=== PATIENT | female | born 1955 | race Caucasian/White ===

== ENCOUNTER 2017-02-24 18:13 | Emergency (ER) | payer SELFPAY ==
[2017-02-24 18:28] VITALS: BP 147/98
[2017-02-24] MEDS ORDERED: Sodium Chloride 0.9% 10 ML Syringe FLUSH PRN (18:53)
[2017-02-24] MEDS ORDERED: HYDROmorphone 0.5 MG/0.5 ML Syringe IVPUSH ONE (18:53)
[2017-02-24] MEDS ORDERED: Sodium Chloride 0.9% 500 ML IV ONE (18:53)
[2017-02-24] MEDS ORDERED: Famotidine 20 MG/2 ML SDV IVPUSH ONE (18:53)
[2017-02-24] MEDS ORDERED: Ondansetron 4 MG/2 ML SDV IVPUSH ONE (18:53)
--- NOTE | 2017-02-24 21:03 | EDM.PDOC ---
ED HPI GI/ABDOMINAL - General Chief Complaint: Abdominal Pain Stated Complaint: CHEST PAIN Time Seen by Provider: 02/24/17 18:40 Source of Information: Reports: Patient, RN notes reviewed - History of Present Illness INITIAL COMMENTS - FREE TEXT/NARRATIVE: 62-year-old female comes in with severe right upper quadrant abdominal pain that began about one hour ago. This began shortly after eating supper this evening. The pain has been right upper abdomen with some radiation to her back. She's had some mild nausea but no vomiting. There is a severe sharp achy discomfort with occasional superimposed cramping. She's not aware of prior gallbladder problems. Is not having pain to the left or lower abdomen. No diarrhea. No fever or chills. No chest pain or difficulty breathing. - Related Data Allergies/ADRs: Allergies Allergy/AdvReac Type Severity Reaction Status Date / Time No Known Allergies Allergy Verified 02/24/17 18:28 Home Meds: Home Meds Calcium Carbonate [Calcium] 1,000 mg PO DAILY 05/01/15 [History] Cyanocobalamin (Vitamin B12) [Vitamin B12] 1 tab PO DAILY 02/24/17 [History] Past Medical History Respiratory History: Reports: Asthma Gastrointestinal History: Reports: Other (see below) Other Gastrointestinal History: diverticulitis Endocrine/Metabolic History: Reports: Diabetes, gestational, Other (see below) Other Endocrine/Metabolic History: borderline diabetic - Past Surgical History GI Surgical History: Reports: Hernia repair/other Female Surgical History: Reports: Hysterectomy, Other (see below) Other Female Surgeries/Procedures: partial hysterectomy Social & Family History - Tobacco Use Smoking Status *Q: Never Smoker Second Hand Smoke Exposure: No - Caffeine Use Caffeine Use: Reports: Coffee - Recreational Drug Use Recreational Drug Use: No ED ROS GENERAL - Review of Systems Review Of Systems: See Below Constitutional: Denies: fever, chills, diaphoresis HEENT: Reports: No symptoms Respiratory: Denies: Shortness of Breath, Pleuritic Chest Pain, Cough Cardiovascular: Denies: Chest pain GI/Abdominal: Reports: Abdominal pain (Severe right upper quad with some radiation to her back), Nausea. Denies: Diarrhea, Vomiting : Reports: no symptoms Musculoskeletal: Denies: leg pain Skin: Reports: no symptoms Neurological: Reports: No Symptoms ED EXAM, GI/ABD - Physical Exam Exam: See Below General Appearance: alert, moderate distress, severe distress Throat/Mouth: Normal inspection Neck: supple, full range of motion Respiratory/Chest: no respiratory distress, lungs clear, normal breath sounds Cardiovascular: regular rate, rhythm GI/Abdominal: tenderness (Very tender right upper quadrant and upper midabdomen , remainder of abdomen is soft and nontender). No: guarding, rigidity ( Remainder) Extremities: normal inspection. No: pedal edema, leg pain Neurological: alert, oriented, no motor/sensory deficits Skin Exam: Warm, Dry, Normal color Course - Vital Signs Last Recorded V/S: Last Vital Signs Temp 97 F 02/24/17 18:27 Pulse 84 02/24/17 18:27 Resp 16 02/24/17 18:27 BP 147/98 H 02/24/17 18:27 Pulse Ox 98 02/24/17 18:27 - Orders/Labs/Meds Orders: Active Orders 24 hr Category Date Time Status EKG 12 Lead [EKG Documentation Completion] [RC] STAT Care 02/24/17 18:52 Active Peripheral IV Care [RC] . DIRECTED Care 02/24/17 18:53 Active Peripheral IV Insertion Adult [OM.PC] Stat Oth 02/24/17 18:52 Ordered Labs: Laboratory Tests 02/24/17 02/24/17 02/24/17 Range/Units 19:15 19:15 19:15 WBC 6.52 (3.98-10.04) K/mm3 RBC 4.19 (3.98-5.22) M/mm3 Hgb 12.6 (11.2-15.7) gm/L Hct 37.8 (34.1-44.9) % MCV 90.2 (79.4-94.8) fl MCH 30.1 (25.6-32.2) pg MCHC 33.3 (32.2-35.5) g/dl RDW Std Deviation 39.3 (36.4-46.3) fL Plt Count 363 (182-369) K/mm3 MPV 9.2 L (9.4-12.3) fl Neut % (Auto) 52.0 (34.0-71.1) % Lymph % (Auto) 37.7 (19.3-51.7) % Jasper % (Auto) 8.4 (4.7-12.5) % Eos % (Auto) 1.4 (0.7-5.8) Baso % (Auto) 0.5 (0.1-1.2) % Neut # (Auto) 3.39 (1.56-6.13) K/mm3 Lymph # (Auto) 2.46 (1.18-3.74) K/mm3 Jasper # (Auto) 0.55 H (0.24-0.36) K/mm3 Eos # (Auto) 0.09 (0.04-0.36) K/mm3 Baso # (Auto) 0.03 (0.01-0.08) K/mm3 Sodium 140 (136-145) mEq/L Potassium 3.5 (3.5-5.1) mEq/L Chloride 106 (98-107) mEq/L Carbon Dioxide 27 (21-32) mEq/L Anion Gap 10.5 (5-15) BUN 18 (7-18) mg/dL Creatinine 1.2 H (0.55-1.02) mg/dL Est Cr Clr Drug Dosing 35.36 mL/min Estimated GFR (MDRD) 46 (>60) mL/min BUN/Creatinine Ratio 15.0 (14-18) Glucose 116 H (80-115) mg/dL Calcium 8.6 (8.5-10.1) mg/dL Total Bilirubin 0.3 (0.2-1.0) mg/dL GGT 40 (5-55) U/L AST 18 (15-37) U/L ALT 27 (14-59) U/L Alkaline Phosphatase 86 (46-116) U/L C-Reactive Protein 0.2 (<1.0) mg/dL Total Protein 6.6 (6.4-8.2) g/dl Albumin 3.8 (3.4-5.0) g/dl Globulin 2.8 gm/dL Albumin/Globulin Ratio 1.4 (1-2) Lipase 178 (73-393) U/L Meds: Medications Discontinued Medications Generic Name Dose Route Start Last Admin Trade Name Freq PRN Reason Stop Dose Admin Famotidine 20 mg 02/24/17 18:53 02/24/17 19:10 Pepcid IVPUSH 02/24/17 18:54 20 mg ONETIME ONE Administration Hydromorphone HCl 0.5 mg 02/24/17 18:53 02/24/17 19:12 Dilaudid IVPUSH 02/24/17 18:54 0.5 mg ONETIME ONE Administration Hyoscyamine 0.125 mg 02/24/17 21:04 02/24/17 21:07 Hyomax-Sl SL 02/24/17 21:05 0.125 mg ONETIME ONE Administration Sodium Chloride 500 mls @ 999 mls/hr 02/24/17 18:53 02/24/17 19:12 Normal Saline IV 02/24/17 19:23 999 mls/hr .BOLUS ONE Administration Ondansetron HCl 4 mg 02/24/17 18:53 02/24/17 19:21 Zofran IVPUSH 02/24/17 18:54 4 mg ONETIME ONE Administration Sodium Chloride 10 ml 02/24/17 18:53 02/24/17 19:12 Saline Flush FLUSH 10 ml ASDIRECTED PRN Administration Keep Vein Open - Re-Assessments/Exams Free Text/Narrative Re-Assessment/Exam: 02/25/17 00:31. Please note the patient was discharged 2 or 3 hours ago. Completing the note at this time. She was given Dilaudid 1 mg IV, Zofran 4 mg IV and some IV fluid. With that her pain is almost completely gone her labs all came back quite normal. Because she did eat just a couple of hours prior to her presenting to the ED she is not a candidate for ultrasound this evening. We have checked and there is a slot available 7:30 in the morning and therefore she will return at that time for ultrasound of abdomen with high suspicion for gallbladder disease. Discharge instructions as documented Departure - Departure Time of Disposition: 21:02 Disposition: Home, Self-Care 01 Condition: fair Clinical Impression: Cholecystitis Abdominal pain Qualifiers: Abdominal location: upper abdomen, unspecified Qualified Code(s): R10.10 - Upper abdominal pain, unspecified Instructions: Cholecystitis, [id number] Referrals: PCP,Not In Area [Primary Care Provider] - Forms: ED Department Discharge Additional Instructions: You are on the schedule for ultrasound of your gallbladder 7:30 tomorrow morning. Clear liquids only until midnight, nothing to eat after midnight. I then recommend that you followup with Dr. Laureano Hood, [facility] for results of your ultrasound study, call tomorrow morning for appointment, [phone]. and for further treatment as needed. I highly suspect that this is the gallbladder causing your abdominal pain this evening but we will not know for sure until you have had the ultrasound tomorrow morning. Clear liquids and bland diet after the ultrasound as tolerated. Avoid all fatty food for now. Fatty food will likely trigger further gallbladder attacks. Return to ED as needed if symptoms worsening in any way. - My Orders Last 24 Hours: My Active Orders 02/24/17 18:52 EKG 12 Lead [EKG Documentation Completion] [RC] STAT Peripheral IV Insertion Adult [OM.PC] Stat 02/24/17 18:53 Peripheral IV Care [RC] . DIRECTED - Assessment/Plan Last 24 Hours: My Active Orders 02/24/17 18:52 EKG 12 Lead [EKG Documentation Completion] [RC] STAT Peripheral IV Insertion Adult [OM.PC] Stat 02/24/17 18:53 Peripheral IV Care [RC] . DIRECTED
[2017-02-24] MEDS ORDERED: Hyoscyamine 0.125 MG Tab.SL SL ONE (21:04)
== END 2017-02-24 21:22 | disposition home or self-care (01) ==
LOC: JD.ED 18:13
DX: K81.9 Cholecystitis, unspecified (principal); Z90.711 Acquired absence of uterus with remaining cervical stump; Z98.890 Other specified postprocedural states
CPT/HCPCS: 36415; 80053; 82977; 83690; 85025; 86140; 93005; 96361; 96374; 96375; 99285; A9270; J1170; J2405; J7040; J7050; 99284

== ENCOUNTER 2017-03-17 17:18 | Emergency (ER) | payer SELFPAY ==
[2017-03-17 17:30] VITALS: BP 174/90
[2017-03-17] MEDS ORDERED: Ondansetron 4 MG/2 ML SDV IVPUSH ONE (17:52)
[2017-03-17] MEDS ORDERED: HYDROmorphone 0.5 MG/0.5 ML Syringe IVPUSH ONE (17:52)
[2017-03-17] MEDS ORDERED: Sodium Chloride 0.9% 10 ML Syringe FLUSH PRN ×2 (17:52→19:21)
--- NOTE | 2017-03-17 17:53 | EDM.PDOC ---
ED HPI GENERAL MEDICAL PROBLEM - General Chief Complaint: Abdominal Pain Stated Complaint: Abdominal pain Time Seen by Provider: 03/17/17 17:40 Source of Information: Reports: Patient, RN Notes Reviewed History Limitations: Reports: No Limitations - History of Present Illness INITIAL COMMENTS - FREE TEXT/NARRATIVE: 62 year old female presents to the ED today for complaints of sudden onset of periumbilical and epigastric abdominal pain. The pain is described as sharp, stabbing, and colicky. She says the symptoms are similar to what she experienced with gallbladder attacks. The pain came on suddenly about 45 minutes prior to arrival. She denies fever but has noticed chills since the pain has started. No nausea or vomiting. Bowel movements have been regular. No diarrhea. She had a lap cholecystectomy 1 week ago and was doing well until now. She reports that she did not have stones but had sludge. She worked today for the first time since surgery. 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 She called her surgeon at [facility] who instructed her to come to the ED if pain becomes severe. Right Upper Abdominal Pain Score (Numeric/FACES): 10 - Related Data Allergies Allergy/AdvReac Type Severity Reaction Status Date / Time No Known Allergies Allergy Verified 03/17/17 17:30 Home Meds: Home Meds Calcium Carbonate [Calcium] 1,000 mg PO DAILY 05/01/15 [History] Cyanocobalamin (Vitamin B12) [Vitamin B12] 1 tab PO DAILY 02/24/17 [History] Past Medical History Respiratory History: Reports: Asthma Gastrointestinal History: Reports: Other (See Below) Other Gastrointestinal History: diverticulitis [employer] History: Reports: , Other (See Below) Endocrine/Metabolic History: Reports: Diabetes, Gestational, Other (See Below) Other Endocrine/Metabolic History: borderline diabetic - Past Surgical History GI Surgical History: Reports: Cholecystectomy, Hernia Repair/Other Female Surgical History: Reports: Hysterectomy, Other (See Below) Musculoskeletal Surgical History: Reports: Arthroscopic Knee Social & Family History - Tobacco Use Smoking Status *Q: Never Smoker Second Hand Smoke Exposure: No - Caffeine Use Caffeine Use: Reports: Coffee - Recreational Drug Use Recreational Drug Use: No ED ROS GENERAL - Review of Systems Review Of Systems: See Below Constitutional: Reports: Chills. Denies: Fever Respiratory: Reports: No Symptoms. Denies: Shortness of Breath Cardiovascular: Reports: No Symptoms. Denies: Chest Pain GI/Abdominal: Reports: Abdominal Pain. Denies: Constipation, Diarrhea, Nausea, Vomiting ED EXAM, GI/ABD - Physical Exam Exam: See Below Exam Limited By: No Limitations General Appearance: Alert, WD/WN, Anxious, Moderate Distress Respiratory/Chest: No Respiratory Distress, Lungs Clear, Normal Breath Sounds Cardiovascular: Regular Rate, Rhythm GI/Abdominal: Soft, No Distention, No Mass, Hyperactive Bowel Sounds, Tenderness (over incision sites, does not tolerate light palpation of epigastrium and epigastric regions), Guarding Neurological: Alert, Oriented, Normal Cognition Course - Vital Signs Last Recorded V/S: Last Vital Signs Temp 97.5 F 03/17/17 17:27 Pulse 89 03/17/17 17:27 Resp 20 03/17/17 20:42 BP 174/90 H 03/17/17 17:27 Pulse Ox 95 03/17/17 20:42 - Orders/Labs/Meds Orders: Active Orders 24 hr Category Date Time Status Peripheral IV Care [RC] . DIRECTED Care 03/17/17 17:52 Active Peripheral IV Insertion Adult [OM.PC] Stat Oth 03/17/17 17:51 Ordered Labs: Laboratory Tests 03/17/17 03/17/17 Range/Units 18:04 18:04 WBC 8.74 (3.98-10.04) K/mm3 RBC 4.40 (3.98-5.22) M/mm3 Hgb 13.4 (11.2-15.7) gm/L Hct 40.4 (34.1-44.9) % MCV 91.8 (79.4-94.8) fl MCH 30.5 (25.6-32.2) pg MCHC 33.2 (32.2-35.5) g/dl RDW Std Deviation 40.5 (36.4-46.3) fL Plt Count 420 H (182-369) K/mm3 MPV 8.9 L (9.4-12.3) fl Neutrophils % (Manual) 50 (40-60) % Band Neutrophils % 1 (0-10) % Lymphocytes % (Manual) 40 (20-40) % Atypical Lymphs % 0 % Monocytes % (Manual) 4 (2-10) % Eosinophils % (Manual) 5 (0.7-5.8) % Basophils % (Manual) 0 L (0.1-1.2) Platelet Estimate Adequate Plt Morphology Comment Normal RBC Morph Comment Normal Sodium 140 (136-145) mEq/L Potassium 3.4 L (3.5-5.1) mEq/L Chloride 103 (98-107) mEq/L Carbon Dioxide 27 (21-32) mEq/L Anion Gap 13.4 (5-15) BUN 11 (7-18) mg/dL Creatinine 1.0 (0.55-1.02) mg/dL Est Cr Clr Drug Dosing 42.43 mL/min Estimated GFR (MDRD) 56 (>60) mL/min BUN/Creatinine Ratio 11.0 L (14-18) Glucose 97 (80-115) mg/dL Calcium 8.8 (8.5-10.1) mg/dL Total Bilirubin 0.4 (0.2-1.0) mg/dL GGT 229 H (5-55) U/L AST 29 (15-37) U/L ALT 109 H (14-59) U/L Alkaline Phosphatase 163 H (46-116) U/L Total Protein 7.3 (6.4-8.2) g/dl Albumin 3.8 (3.4-5.0) g/dl Globulin 3.5 gm/dL Albumin/Globulin Ratio 1.1 (1-2) Amylase 73 (25-115) U/L Lipase 121 (73-393) U/L Meds: Medications Discontinued Medications Generic Name Dose Route Start Last Admin Trade Name Freq PRN Reason Stop Dose Admin Diatrizoate Meglum/Diatrizoate Sod 120 ml 03/17/17 19:21 03/17/17 19:56 Gastrografin 37% PO 03/17/17 19:22 90 ml ONETIME ONE Administration Hydromorphone HCl 0.5 mg 03/17/17 17:52 03/17/17 18:12 Dilaudid IVPUSH 03/17/17 17:53 0.5 mg ONETIME ONE Administration Iopamidol 150 ml 03/17/17 19:21 03/17/17 19:57 Isovue-300 (61%) IVPUSH 03/17/17 19:22 100 ml ONETIME ONE Administration Ondansetron HCl 4 mg 03/17/17 17:52 03/17/17 18:18 Zofran IVPUSH 03/17/17 17:53 4 mg ONETIME ONE Administration Sodium Chloride 10 ml 03/17/17 17:52 03/17/17 18:16 Saline Flush FLUSH 10 ml ASDIRECTED PRN Administration Keep Vein Open Sodium Chloride 10 ml 03/17/17 19:21 03/17/17 19:56 Saline Flush FLUSH 10 ml ONETIME PRN Administration IV FLUSH - Re-Assessments/Exams Free Text/Narrative Re-Assessment/Exam: CBC, CMP, amylase, and lipase are normal. Her GGT is elevated but I suspect this elevation is related to her recent surgery. CT of abdomen/pelvis read by Dr. Baltazar, impression: 1. Slight increased stool within the colon 2. Other incidental findings. Nothing acute is appreciated The patient's symptoms are consistent with constipation. Will treat for constipation. Educated on dietary modifications and OTC medications. Instructed to f/u with her surgeon as instructed. Departure - Departure Time of Disposition: 20:33 Disposition: Home, Self-Care 01 Condition: good Clinical Impression: Constipation Qualifiers: Constipation type: unspecified constipation type Qualified Code(s): K59.00 - Constipation, unspecified - Discharge Information Instructions: Constipation, Adult, [id number] Referrals: PCP,Not In Area [Primary Care Provider] - Forms: ED Department Discharge Additional Instructions: Drink at least 80 oz of water per day Tylenol as needed for pain Docusate stool softener twice a day until regular then once a day You may also drink prune juice to help with bowels Continue with high fiber foods - fruits vegetables and whole grains Continue to follow your post-op instructions from your surgeon Return to ER if your symptoms worsen - My Orders Last 24 Hours: My Active Orders 03/17/17 17:51 Peripheral IV Insertion Adult [OM.PC] Stat 03/17/17 17:52 Peripheral IV Care [RC] . DIRECTED - Assessment/Plan Last 24 Hours: My Active Orders 03/17/17 17:51 Peripheral IV Insertion Adult [OM.PC] Stat 03/17/17 17:52 Peripheral IV Care [RC] . DIRECTED
[2017-03-17] MEDS ORDERED: Iopamidol 612 MG/ML 150 ML Bottle IVPUSH ONE (19:21)
[2017-03-17] MEDS ORDERED: Diatrizoate Meglumine/Diatrizoate Sodium 37% 120 ML Bottle PO ONE (19:21)
--- NOTE | 2017-03-17 20:21 | CT ---
CT abdomen and pelvis Technique: Multiple axial sections were obtained from above the dome of the diaphragm inferiorly through the pubic symphysis. Intravenous and oral contrast was utilized. Delayed images were also obtained through the bladder. Comparison: Previous CT abdomen and pelvis exam of 05/01/15. Findings: Visualized lung bases are clear. Liver shows no focal abnormality. Previous cholecystectomy is noted. Spleen appears within normal limits in size. Adrenal glands show no nodule. Pancreas is within normal limits. Kidneys show symmetric contrast enhancement without hydronephrosis or mass. Incidental duodenal diverticulum seen off the fourth portion of the duodenum measuring 3.4 cm. This appears as a stable finding. Aorta shows no aneurysmal dilatation. No retroperitoneal adenopathy or mesenteric abnormalities are seen. Appendix is seen which is normal. No pelvic mass or adenopathy is seen. Anastomotic sutures are seen within the sigmoid colon. Slight diverticulosis is noted within the sigmoid and descending colon without inflammatory change. No findings of acute diverticulitis are seen. Slight increased stool is noted within the colon. Delayed images shows contrast within the distal ureters and within the bladder. Bone window settings were reviewed which appear within normal limits for the patient's age. Impression: 1. Slight increased stool within the colon. 2. Other incidental findings. Nothing acute is appreciated on CT study of the abdomen and pelvis. Diagnostic code #2
== END 2017-03-17 20:45 | disposition home or self-care (01) ==
LOC: JD.ED 17:18
DX: K59.00 Constipation, unspecified (principal); J45.909 Unspecified asthma, uncomplicated; E11.9 Type 2 diabetes mellitus without complications; Z90.710 Acquired absence of both cervix and uterus; Z90.49 Acquired absence of other specified parts of digestive tract; Z79.899 Other long term (current) drug therapy
CPT/HCPCS: 36415; 74177; 80053; 82150; 82977; 83690; 85025; 96374; 96375; 99284; J1170; J2405; J7050; Q9963; Q9967

== ENCOUNTER 2017-07-14 13:59 | Emergency (ER) | payer SELFPAY ==
[2017-07-14 14:10] VITALS: BP 125/72
[2017-07-14] MEDS ORDERED: Sodium Chloride 0.9% 10 ML Syringe FLUSH PRN (14:30)
--- NOTE | 2017-07-14 14:45 | EDM.PDOC ---
ED HPI GENERAL MEDICAL PROBLEM - General Chief Complaint: Cardiovascular Problem Stated Complaint: Chest pain Time Seen by Provider: 07/14/17 14:15 Source of Information: Reports: Patient, RN Notes Reviewed History Limitations: Reports: No Limitations - History of Present Illness INITIAL COMMENTS - FREE TEXT/NARRATIVE: 62 year old female presents to the ED with complaints of epigastric pain, diaphoresis, and near syncope. She said symptoms started suddenly. She initially felt lightheaded and like she may pass out. She then developed sharp, epigastric pain. She had no loss of consciousness. She felt short of breath at the time of symptoms. Symptoms have resolved prior to arrival. She denies radiation of the pain. She reports drinking coffee this morning. She has not eaten today. She denies pleuritic chest pain, lower extremity edema, unilateral calf pain or erythema. She is not on any blood thinners or hormone replacements. She has no history of clotting disorder. No recent travel. She is not a smoker and denies frequent alcohol use. She denies history of heart disease or high cholesterol. She has a history of asthma but no other long problems. She denies taking any medications currently and denies any asthma symptoms. PMH: asthma, GERD, and gallstones. Surgical history: cholecystectomy, hystorectomy, bowel resection due to diverticulitis. 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: , Other (See Below) Endocrine/Metabolic History: Reports: Diabetes, Gestational, Other (See Below) Other Endocrine/Metabolic History: borderline diabetic - Past Surgical History GI Surgical History: Reports: Cholecystectomy, Hernia Repair/Other Female Surgical History: Reports: Hysterectomy, Other (See Below) Musculoskeletal Surgical History: Reports: Arthroscopic Knee Social & Family History - Tobacco Use Smoking Status *Q: Never Smoker Second Hand Smoke Exposure: No - Caffeine Use Caffeine Use: Reports: Coffee - Recreational Drug Use Recreational Drug Use: No ED ROS GENERAL - Review of Systems Review Of Systems: See Below Constitutional: Reports: Diaphoresis. Denies: Fever, Chills Respiratory: Denies: Shortness of Breath, Wheezing, Pleuritic Chest Pain, Cough Cardiovascular: Reports: Chest Pain, Lightheadedness. Denies: Dyspnea on Exertion, Palpitations, Syncope GI/Abdominal: Reports: Abdominal Pain (epigastric pain). Denies: Constipation, Diarrhea, Nausea, Vomiting Neurological: Reports: No Symptoms. Denies: Headache, Numbness, Tingling ED EXAM, GENERAL - Physical Exam Exam: See Below Exam Limited By: No Limitations General Appearance: Alert, WD/WN, No Apparent Distress, Anxious Neck: Normal Inspection, Supple, Non-Tender Respiratory/Chest: No Respiratory Distress, Lungs Clear, Normal Breath Sounds, No Accessory Muscle Use, Chest Non-Tender, Other (tachypnic ) Cardiovascular: Normal Peripheral Pulses, Regular Rate, Rhythm, No Edema, No Murmur GI/Abdominal: Normal Bowel Sounds, Soft, No Organomegaly, No Distention, Tender (epigastric ) Neurological: Alert, Oriented, Normal Cognition, No Motor/Sensory Deficits Psychiatric: Anxious Skin Exam: Warm, Dry, Intact EKG INTERPRETATION EKG Date: 07/14/17 Time: 14:19 Rhythm: NSR Rate (Beats/Min): 96 [place]: Normal P-Wave: Present QRS: Normal QT: Normal EKG Interpretation Comments: Non-specific ST depression in II, AVL, V3-V6 and elevation in AVR. All ST changes are less than 1mm, therefore no STEMI. EKG read by Dr. Ender Cui. Course - Vital Signs Last Recorded V/S: Last Vital Signs Temp 96.7 F 07/14/17 14:06 Pulse 72 07/14/17 14:06 Resp 22 H 07/14/17 14:06 BP 125/72 07/14/17 14:06 Pulse Ox 100 07/14/17 14:06 - Orders/Labs/Meds Orders: Active Orders 24 hr Category Date Time Status Blood Glucose Check, Bedside [RC] ONETIME Care 07/14/17 14:30 Active Peripheral IV Care [RC] . DIRECTED Care 07/14/17 14:31 Active Sodium Chloride 0.9% [Saline Flush] Med 07/14/17 14:30 Active 10 ml FLUSH ASDIRECTED PRN Peripheral IV Insertion Adult [OM.PC] Stat Oth 07/14/17 14:30 Ordered EKG 12 Lead [EK] Stat Ther 07/14/17 14:11 Ordered Medication Orders Sodium Chloride (Saline Flush) 10 ml FLUSH ASDIRECTED PRN PRN Reason: Keep Vein Open Last Admin: 07/14/17 14:53 Dose: 10 ml Labs: Laboratory Tests 07/14/17 07/14/17 07/14/17 Range/Units 14:40 14:40 15:03 WBC 5.82 (3.98-10.04) K/mm3 RBC 4.77 (3.98-5.22) M/mm3 Hgb 14.5 (11.2-15.7) gm/L Hct 43.6 (34.1-44.9) % MCV 91.4 (79.4-94.8) fl MCH 30.4 (25.6-32.2) pg MCHC 33.3 (32.2-35.5) g/dl RDW Std Deviation 40.3 (36.4-46.3) fL Plt Count 402 H (182-369) K/mm3 MPV 9.0 L (9.4-12.3) fl Neut % (Auto) 48.0 (34.0-71.1) % Lymph % (Auto) 42.8 (19.3-51.7) % [place] % (Auto) 5.8 (4.7-12.5) % Eos % (Auto) 2.7 (0.7-5.8) Baso % (Auto) 0.5 (0.1-1.2) % Neut # (Auto) 2.79 (1.56-6.13) K/mm3 Lymph # (Auto) 2.49 (1.18-3.74) K/mm3 [place] # (Auto) 0.34 (0.24-0.36) K/mm3 Eos # (Auto) 0.16 (0.04-0.36) K/mm3 Baso # (Auto) 0.03 (0.01-0.08) K/mm3 Sodium 143 (136-145) mEq/L Potassium 3.8 (3.5-5.1) mEq/L Chloride 106 (98-107) mEq/L Carbon Dioxide 28 (21-32) mEq/L Anion Gap 12.8 (5-15) BUN 12 (7-18) mg/dL Creatinine 1.1 H (0.55-1.02) mg/dL Est Cr Clr Drug Dosing TNP Estimated GFR (MDRD) 50 (>60) mL/min BUN/Creatinine Ratio 10.9 L (14-18) Glucose 112 (80-115) mg/dL POC Glucose 102 (80-115) mg/dL Calcium 9.0 (8.5-10.1) mg/dL Total Bilirubin 0.4 (0.2-1.0) mg/dL AST 46 H (15-37) U/L ALT 56 (14-59) U/L Alkaline Phosphatase 111 (46-116) U/L Troponin I < 0.017 (0.00-0.056) ng/mL Total Protein 7.4 (6.4-8.2) g/dl Albumin 3.9 (3.4-5.0) g/dl Globulin 3.5 gm/dL Albumin/Globulin Ratio 1.1 (1-2) Lipase 232 (73-393) U/L Meds: Medications Generic Name Dose Route Start Last Admin Trade Name Freq PRN Reason Stop Dose Admin Sodium Chloride 10 ml 07/14/17 14:30 07/14/17 14:53 Saline Flush FLUSH 10 ml ASDIRECTED PRN Administration Keep Vein Open - Re-Assessments/Exams Free Text/Narrative Re-Assessment/Exam: CBC and CMP are unremarkable. Troponin and Lipase are WNL. Chest x-ray is normal. There is no pulmonary infiltrates or effusions. No bony abnormality. Heart size is normal. There is no free air under the diaphragm to indicate perforated ulcer. EKG has no acute ischemic changes. By history, the patient drank coffee today with sugar this morning and has not eaten today. She describes symptoms (diaphoresis and lightheadedness) consistent with transient hypoglycemia. On exam, she has epigatric tenderness. She also has a history of GERD. Cardiac etiology has been ruled out. Symptoms are consistent with diagnosis of gastritis. Will start her on omeprazole and carafate. She was educated on dietary modifications and return precautions. She was instructed to f/u with her PCP next week. Departure - Departure Time of Disposition: 16:08 Disposition: Home, Self-Care 01 Condition: Good Clinical Impression: Gastritis Qualifiers: Gastritis type: unspecified gastritis Chronicity: acute Gastritis bleeding: without bleeding Qualified Code(s): K29.00 - Acute gastritis without bleeding Prescriptions: Omeprazole 20 mg PO BID #28 cap.cr Sucralfate [Carafate] 1 gm PO QID #56 tablet Instructions: Gastritis, Adult, [id number] Referrals: Randolph Mills [Primary Care Provider] - Forms: ED Department Discharge Additional Instructions: Omeprazole (Prilosec) 20mg twice a day for two weeks Carafate 1 gram 1 hour before each meal and at bedtime Avoid coffee, caffeine, alcohol, spicy foods, acidic foods (tomatoes, citrus fruits) Avoid Non-steroidal anti-inflammatory (NSAID) medications including Ibuprofen, Motrin, Aleve, Naproxyn You can also take Zantac 150mg 1-2 times daily as needed for epigastric pain not relieved by the above medications Follow-up with your primary care provider next week for recheck Return to ER with any new or worsening symptoms - My Orders Last 24 Hours: My Active Orders 07/14/17 14:11 EKG 12 Lead [EK] Stat 07/14/17 14:30 Blood Glucose Check, Bedside [RC] ONETIME Sodium Chloride 0.9% [Saline Flush] 10 ml FLUSH ASDIRECTED PRN Peripheral IV Insertion Adult [OM.PC] Stat 07/14/17 14:31 Peripheral IV Care [RC] . DIRECTED - Assessment/Plan Last 24 Hours: My Active Orders 07/14/17 14:11 EKG 12 Lead [EK] Stat 07/14/17 14:30 Blood Glucose Check, Bedside [RC] ONETIME Sodium Chloride 0.9% [Saline Flush] 10 ml FLUSH ASDIRECTED PRN Peripheral IV Insertion Adult [OM.PC] Stat 07/14/17 14:31 Peripheral IV Care [RC] . DIRECTED
--- NOTE | 2017-07-14 15:29 | CR ---
Chest: Portable view of the chest was obtained. Comparison: No prior chest x-ray. Heart size and mediastinum are within normal limits. Lungs are clear. Bony structures are grossly intact. Surgical clips are noted from prior cholecystectomy. Impression: 1. Nothing acute is seen on portable chest x-ray. Diagnostic code #2
== END 2017-07-14 16:11 | disposition home or self-care (01) ==
LOC: JD.ED 13:59
DX: K29.00 Acute gastritis without bleeding (principal); K21.9 Gastro-esophageal reflux disease without esophagitis; J45.909 Unspecified asthma, uncomplicated
CPT/HCPCS: 36415; 71010; 80053; 82962; 83690; 84484; 85025; 93005; 99285; J7050; 99284

== ENCOUNTER 2019-11-26 16:08 | Emergency (ER) | payer SELFPAY ==
[2019-11-26 16:26] VITALS: BP 162/106; PULSE 77
--- NOTE | 2019-11-26 19:23 | EDM.PDOC ---
ED HPI GENERAL MEDICAL PROBLEM - General Chief Complaint: Back Pain or Injury Stated Complaint: L SIDE BACK PAIN Time Seen by Provider: 11/26/19 18:52 Source of Information: Reports: Patient, Family () History Limitations: Reports: No Limitations - History of Present Illness INITIAL COMMENTS - FREE TEXT/NARRATIVE: Mrs. Conway is a pleasant 64-year-old woman with a past medical history significant for suspected and untreated asthma, untreated GERD, diverticulitis, peptic ulcer disease, and arthritis, who states that she developed upper left back pain that radiates to her far-left chest around 16:00 this afternoon. She describes the pain as sharp, when present, to the point that it makes her feel like she might pass out, however, the pain is intermittent, lasting only a few seconds, recurring every 15-20 minutes. She has not identified any modifiers. No associated dyspnea or lightheadedness. She has had nausea, but states that it is unrelated to her pain. No palpitations, diaphoresis, or sense of impending doom. No prior similar symptoms. The patient denies incurring any recent injury or strain to the area. The patient reports having a sore throat and cough for the past 2 weeks, otherwise, she denies any recent fever, chills, vomiting, constipation, diarrhea , abdominal pain, urinary symptoms, recent weight gain or weight loss, recent bloody bowel movements or black bowel movements, recent joint aches, headaches, or rashes. The patient's PCP is Dr. Adrien Mills, in [place]. She did not receive an influenza vaccine this season, but declined an offer to receive one here [facility]. Left Back Pain Score (Numeric/FACES): 10 - Related Data Allergies Allergy/AdvReac Type Severity Reaction Status Date / Time No Known Allergies Allergy Verified 11/26/19 16:26 Home Meds: Home Meds Calcium Carbonate [Calcium] 1,000 mg PO DAILY 05/01/15 [History] Cyanocobalamin (Vitamin B12) [Vitamin B12] 1 tab PO DAILY 02/24/17 [History] Aspirin 81 mg PO DAILY 11/26/19 [History] Orphenadrine [Norflex] 1 tab PO Q12H PRN #14 tab.er 11/26/19 [Rx] Past Medical History HEENT History: Reports: Hard of Hearing (wears hearing aids) Respiratory History: Reports: Asthma (Suspected, not tested. Untreated.) Gastrointestinal History: Reports: Diverticulosis (diverticulitis), GERD ( untreated), PUD Musculoskeletal History: Reports: Arthritis Endocrine/Metabolic History: Reports: Diabetes, Gestational - Past Surgical History GI Surgical History: Reports: Cholecystectomy (2017), Colon (hemicolectomy 2 diverticulitis), Colonoscopy (x 2 or 3), EGD (x 1), Hernia, Abdominal ( periumbilical) Female Surgical History: Reports: Section (x 1), Hysterectomy ( partial) Musculoskeletal Surgical History: Reports: Arthroscopic Knee (left) Social & Family History - Tobacco Use Smoking Status *Q: Former Smoker Years of Tobacco use: 30 Packs/Tins Daily: 1 Month/Year Tobacco Last Used: Quit 2009 - Caffeine Use Caffeine Use: Reports: Coffee - Alcohol Use Alcohol Use History: Yes Alcohol Use Frequency: Socially - Recreational Drug Use Recreational Drug Use: No - Living Situation & Occupation Living situation: Reports: , with Spouse 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 ED EXAM, GENERAL - Physical Exam Exam: See Below Exam Limited By: No Limitations General Appearance: Alert, WD/WN, No Apparent Distress Eye Exam: Bilateral Eye: EOMI, Normal Inspection Ears: Normal External Exam, Other (wears hearing aids) Nose: Normal Inspection Throat/Mouth: Normal Inspection, Normal Lips, Normal Voice, No Airway Compromise Head: Atraumatic, Normocephalic Neck: Normal Inspection, Full Range of Motion Respiratory/Chest: No Respiratory Distress, Lungs Clear, Normal Breath Sounds, No Accessory Muscle Use, Other (Producible tenderness to palpation of the left chest, midaxillary line). No: Decreased Breath Sounds, Crackles, Rhonchi, Wheezing, Stridor, Pleural Rub, Prolonged Expiration Cardiovascular: Normal Peripheral Pulses, Regular Rate, Rhythm, No Edema, No Gallop, No JVD, No Murmur, No Rub Peripheral Pulses: 4+: Radial (L), Radial (R) GI/Abdominal: Normal Bowel Sounds, Soft, No Organomegaly, No Distention, No Abnormal Bruit, No Mass, Tender (Reproducible, left upper quadrant only. Nontender elsewhere.) (Female) Exam: Deferred Rectal (Female) Exam: Deferred Back Exam: Normal Inspection, Full Range of Motion, Other (Reproducible tenderness to palpation, without percussion, of the left flank). No: CVA Tenderness (R) Extremities: Normal Inspection, Normal Range of Motion, No Pedal Edema, Normal Capillary Refill Neurological: Alert, Oriented, Normal Cognition, No Motor/Sensory Deficits Psychiatric: Anxious Skin Exam: Warm, Dry, Intact, Normal Color, No Rash EKG INTERPRETATION EKG Date: 11/26/19 Time: 16:32 Rhythm: NSR Rate (Beats/Min): 78 [place]: LAD-Left [place] Deviation P-Wave: Enlarged (LAE) QRS: Other (Late transition) ST-T: Normal QT: Normal Comparison: No Change (07/14/2017) Course - Vital Signs Last Recorded V/S: Last Vital Signs Temp 36.8 C 11/26/19 16:23 Pulse 77 11/26/19 16:23 Resp 18 11/26/19 16:23 BP 162/106 H 11/26/19 16:23 Pulse Ox 98 11/26/19 16:23 - Orders/Labs/Meds Labs: Laboratory Tests 11/26/19 11/26/19 11/26/19 Range/Units 18:57 18:57 18:57 WBC 7.42 (3.98-10.04) K/mm3 RBC 4.37 (3.98-5.22) M/mm3 Hgb 13.1 (11.2-15.7) gm/dl Hct 41.2 (34.1-44.9) % MCV 94.3 (79.4-94.8) fl MCH 30.0 (25.6-32.2) pg MCHC 31.8 L (32.2-35.5) g/dl RDW Std Deviation 41.2 (36.4-46.3) fL Plt Count 489 H D (182-369) K/mm3 MPV 8.6 L (9.4-12.3) fl Neutrophils % (Manual) 44 (40-60) % Band Neutrophils % 0 (0-10) % Lymphocytes % (Manual) 48 H (20-40) % Atypical Lymphs % 0 % Monocytes % (Manual) 6 (2-10) % Eosinophils % (Manual) 2 (0.7-5.8) % Basophils % (Manual) 0 L (0.1-1.2) Platelet Estimate Increased Plt Morphology Comment See note RBC Morph Comment Normal D-Dimer, Quantitative 0.23 (0.19-0.50) mg/L Sodium 140 (136-145) mEq/L Potassium 3.9 (3.5-5.1) mEq/L Chloride 104 (98-107) mEq/L Carbon Dioxide 27 (21-32) mEq/L Anion Gap 12.9 (5-15) BUN 12 (7-18) mg/dL Creatinine 0.9 (0.55-1.02) mg/dL Est Cr Clr Drug Dosing 45.96 mL/min Estimated GFR (MDRD) > 60 (>60) mL/min BUN/Creatinine Ratio 13.3 L (14-18) Glucose 101 (80-115) mg/dL Calcium 8.8 (8.5-10.1) mg/dL Total Bilirubin 0.3 (0.2-1.0) mg/dL AST 17 (15-37) U/L ALT 36 (14-59) U/L Alkaline Phosphatase 104 (46-116) U/L Troponin I < 0.017 (0.00-0.056) ng/mL Total Protein 7.2 (6.4-8.2) g/dl Albumin 3.8 (3.4-5.0) g/dl Globulin 3.4 gm/dL Albumin/Globulin Ratio 1.1 (1-2) Urine Color (Yellow) Urine Appearance (Clear) Urine pH (5.0-8.0) Ur Specific [place] (1.005-1.030) Urine Protein (Negative) Urine Glucose (UA) (Negative) Urine Ketones (Negative) Urine Occult Blood (Negative) Urine Nitrite (Negative) Urine Bilirubin (Negative) Urine Urobilinogen (0.2-1.0) Ur Leukocyte Esterase (Negative) Urine RBC (0-5) /hpf Urine WBC (0-5) /hpf Ur Squamous Epith Cells (0-5) /hpf Urine Bacteria (FEW) /hpf Urine Mucus (FEW) /hpf 11/26/19 Range/Units 20:46 WBC (3.98-10.04) K/mm3 RBC (3.98-5.22) M/mm3 Hgb (11.2-15.7) gm/dl Hct (34.1-44.9) % MCV (79.4-94.8) fl MCH (25.6-32.2) pg MCHC (32.2-35.5) g/dl RDW Std Deviation (36.4-46.3) fL Plt Count (182-369) K/mm3 MPV (9.4-12.3) fl Neutrophils % (Manual) (40-60) % Band Neutrophils % (0-10) % Lymphocytes % (Manual) (20-40) % Atypical Lymphs % % Monocytes % (Manual) (2-10) % Eosinophils % (Manual) (0.7-5.8) % Basophils % (Manual) (0.1-1.2) Platelet Estimate Plt Morphology Comment RBC Morph Comment D-Dimer, Quantitative (0.19-0.50) mg/L Sodium (136-145) mEq/L Potassium (3.5-5.1) mEq/L Chloride (98-107) mEq/L Carbon Dioxide (21-32) mEq/L Anion Gap (5-15) BUN (7-18) mg/dL Creatinine (0.55-1.02) mg/dL Est Cr Clr Drug Dosing mL/min Estimated GFR (MDRD) (>60) mL/min BUN/Creatinine Ratio (14-18) Glucose (80-115) mg/dL Calcium (8.5-10.1) mg/dL Total Bilirubin (0.2-1.0) mg/dL AST (15-37) U/L ALT (14-59) U/L Alkaline Phosphatase (46-116) U/L Troponin I (0.00-0.056) ng/mL Total Protein (6.4-8.2) g/dl Albumin (3.4-5.0) g/dl Globulin gm/dL Albumin/Globulin Ratio (1-2) Urine Color Yellow (Yellow) Urine Appearance Clear (Clear) Urine pH 7.0 (5.0-8.0) Ur Specific [place] 1.025 (1.005-1.030) Urine Protein Negative (Negative) Urine Glucose (UA) Negative (Negative) Urine Ketones Negative (Negative) Urine Occult Blood Negative (Negative) Urine Nitrite Negative (Negative) Urine Bilirubin Negative (Negative) Urine Urobilinogen 0.2 (0.2-1.0) Ur Leukocyte Esterase Negative (Negative) Urine RBC 0-5 (0-5) /hpf Urine WBC 0-5 (0-5) /hpf Ur Squamous Epith Cells 0-5 (0-5) /hpf Urine Bacteria Occasional (FEW) /hpf Urine Mucus Not seen (FEW) /hpf Meds: Medications Discontinued Medications Generic Name Dose Route Start Last Admin Trade Name Kaley PRN Reason Stop Dose Admin Ibuprofen 600 mg 11/26/19 21:09 11/26/19 21:18 Motrin PO 11/26/19 21:10 600 mg ONETIME ONE Administration Orphenadrine Citrate 100 mg 11/26/19 21:09 11/26/19 21:18 Norflex PO 11/26/19 21:10 100 mg ONETIME STA Administration - Re-Assessments/Exams Free Text/Narrative Re-Assessment/Exam: 11/26/19 19:19 The patient is experiencing pain and tenderness extending from her far left chest to her left upper quadrant into her left flank. Anatomically, the only structure that would cover these areas would be muscles, and the fact that her pain is reproducible with relatively light palpation strongly indicates that pain is musculoskeletal in etiology. Nevertheless, I want to rule out any significant problems. The patient's triage nurse ordered a CBC, CMP, troponin, and an ECG. I will add a D-dimer, urinalysis, and chest x-ray. 11/26/19 21:07 Two-view chest radiograph appears to be grossly normal. The cardiac silhouette is within normal limits. No pulmonary vascular congestion. No pleural effusions. No focal infiltrate. No pneumothorax. Formal read per the Radiologist pending. The patient's CBC is remarkable for platelets slightly elevated at 489,000, and is otherwise unremarkable. Her CMP is unremarkable. Her troponin is undetectably low. Her D-dimer is within normal limits at 0.23. Her urinalysis is unremarkable. 11/26/19 21:18 Test results discussed with the patient and her . There is no suggestion that the patient's pain is cardiac in etiology. She does not have pneumonia or a pneumothorax. She has not suffered a PE. There is no suggestion of a ureterolith. As above, the patient's pain appears to be musculoskeletal in etiology. I will start her on ibuprofen and Norflex. If her symptoms persist beyond a few days, I would like her to follow-up with her PCP for reevaluation. Departure - Departure Time of Disposition: 21:19 Disposition: Home, Self-Care 01 Condition: Good Clinical Impression: Musculoskeletal chest pain, Musculoskeletal back pain, Abdominal muscle pain - Discharge Information *PRESCRIPTION DRUG MONITORING PROGRAM REVIEWED*: Not Applicable *COPY OF PRESCRIPTION DRUG MONITORING REPORT IN PATIENT LEANDRA: Not Applicable Prescriptions: Orphenadrine [Norflex] 1 tab PO Q12H PRN #14 tab.er PRN Reason: Muscle Spasm Instructions: Musculoskeletal Pain Referrals: Adrien Mills MD [Ordering Only Provider] - Forms: ED Department Discharge Additional Instructions: You were seen in the emergency room for pain to your left back and flank, left side of your chest, and left upper abdomen. Work-up in the ER included blood work, a urinalysis, a chest x-ray, and an ECG. Your entire work-up was unremarkable. Your pain is not from your heart, and you have not suffered a heart attack. You do not have pneumonia or a collapsed lung. You do not have a blood clot in your lungs. You do not have a kidney stone. Based on your history, physical exam, and ER test, the cause of your pain is most likely musculoskeletal. You have been started on the muscle relaxant Norflex, and a prescription for Norflex has been sent to the [facility], located in the [facility] grocery store. Take 1 tablet of Norflex every 12 hours, starting tomorrow morning, 11/27/2019, as prescribed. In addition to Norflex, we also recommend that you take [id number] ibuprofen, 2 to 3 tablets (400-600 mg) every 8 hours, with food, as needed for discomfort. If your symptoms persist beyond a few days, please follow-up with your PCP, Dr. Adrien Mills. If any other problems, please do not hesitate to return to the ER. Sepsis Event Note - Evaluation Sepsis Screening Result: No Definite Risk - Focused Exam Date Exam was Performed: 11/29/19 Time Exam was Performed: 04:42
[2019-11-26] MEDS ORDERED: Ibuprofen 600 MG Tab PO ONE (21:09)
[2019-11-26] MEDS ORDERED: Orphenadrine 100 MG Tab.ER PO STA (21:09)
--- NOTE | 2019-11-27 07:13 | CR ---
Chest: Two views of the chest were obtained. Comparison: Prior chest x-ray of 07/14/17. Heart size and mediastinum are normal. Lungs are clear. Mild scattered disc space narrowing is noted within the spine. Surgical clips are seen from prior cholecystectomy. Impression: 1. Findings believed to be nonacute and incidental. 2. Nothing acute is appreciated on two-view chest x-ray. Diagnostic code #2 Study was dictated in [place] Standard Time
== END 2019-11-26 21:48 | disposition home or self-care (01) ==
LOC: JD.ED 16:08
DX: R07.89 Other chest pain (principal); M54.6 Pain in thoracic spine; R10.9 Unspecified abdominal pain; Z87.891 Personal history of nicotine dependence; Z79.82 Long term (current) use of aspirin
CPT/HCPCS: 36415; 71046; 80053; 81001; 84484; 85007; 85027; 85379; 93005; 99284; A9270; 93010; 99283